=== PATIENT | female | born 1940 | race Caucasian/White ===

== ENCOUNTER 2023-07-14 13:53 | Emergency (ER) | payer MEDICARE, OTHER ==
[2023-07-14] MEDS ORDERED: Sodium Chloride 0.9% 10 ML Syringe FLUSH PRN (14:57)
[2023-07-14 15:14] LABS: HEMATOCRIT 53.2 % (37.0-47.0); MEAN CORPUSCULAR HGB CONC 33.8 g/dL (33.0-35.0); MEAN CORPUSCULAR VOLUME 88.7 fL (80-100); PLATELET COUNT,PLT 242 10^3/uL (150-450); WHITE BLOOD CELL COUNT,WBC 16.7 10^3/uL (5.0-10.0)
[2023-07-14 15:15] LABS: BASOPHILS PERCENT AUTO 0.2 % (0.0-1.0); EOSINOPHILS PERCENT AUTO 9.5 % (1.0-3.0); MONOCYTES PERCENT AUTO 8.6 % (2-8); NEUTROPHILS PERCENT AUTO 65.7 % (42.2-75.2)
[2023-07-14 15:33] LABS: ANION GAP 16.6 mEq/L (7-13); BILIRUBIN TOTAL 0.6 mg/dL (0.2-1.0); BUN/CREATININE RATIO 13.1 (No establ ref range); C-REACTIVE PROTEIN 1.11 ng/dL (<=0.30); CALCIUM 9.2 mg/dL (8.5-10.1); CREATININE 1.68 mg/dL (0.55-1.02); EST CRCL DRUG DOSING (CG) 23.06 mL/min; MAGNESIUM 1.6 mg/dL (1.8-2.4); POTASSIUM,K 3.6 mmol/L (3.5-5.1); PROTEIN TOTAL,TP 6.6 g/dL (6.4-8.2)
[2023-07-14 15:39] LABS: A/G RATIO 0.83
[2023-07-14 15:48] LABS: BAND PERCENT MAN 16 %; EOSINOPHILS PERCENT MAN 4 % (1-3); LYMPHOCYTES PERCENT MAN 24 % (20-50); MONOCYTES PERCENT MAN 9 % (2-8); SEG NEUTROPHILS PERCENT MAN 47 % (42-75)
[2023-07-14 15:49] LABS: ANISOCYTOSIS 1+ SLIGHT; ATYPICAL LYMPHOCYTES FEW; PLATELET COUNT ESTIMATE ADEQUATE; TARGET CELLS FEW
== END 2023-07-14 16:45 | disposition home or self-care (01) ==
LOC: DL.ED 13:53
DX: R53.1 Weakness (principal); J44.9 Chronic obstructive pulmonary disease, unspecified; Z79.82 Long term (current) use of aspirin; Z79.899 Other long term (current) drug therapy
CPT/HCPCS: 36415; 71250; 80053; 83605; 83735; 85025; 86140; 99284; 99285

== ENCOUNTER 2023-07-26 12:18 | Emergency (ER) | payer MEDICARE, OTHER ==
[2023-07-26 13:13] LABS: BASOPHILS PERCENT AUTO 0.2 % (0.0-1.0); HEMATOCRIT 45.5 % (37.0-47.0); HEMOGLOBIN 15.1 g/dL (12.0-16.0); LYMPHOCYTES PERCENT AUTO 6.7 % (20.5-50.1); MEAN CORPUSCULAR HEMOGLOBIN 29.5 pg (27.0-34.0); MEAN CORPUSCULAR HGB CONC 33.2 g/dL (33.0-35.0); MONOCYTES PERCENT AUTO 9.8 % (2-8); NEUTROPHILS PERCENT AUTO 78.3 % (42.2-75.2); PLATELET COUNT,PLT 195 10^3/uL (150-450); RED BLOOD CELL COUNT 5.11 10^6/uL (4.2-5.4); WHITE BLOOD CELL COUNT,WBC 6.3 10^3/uL (5.0-10.0)
[2023-07-26 13:24] LABS: ALBUMIN 2.9 g/dL (3.4-5.0); ANION GAP 15.6 mEq/L (7-13); BILIRUBIN TOTAL 0.8 mg/dL (0.2-1.0); BUN/CREATININE RATIO 14.2 (No establ ref range); CALCIUM 8.8 mg/dL (8.5-10.1); CREATININE 1.13 mg/dL (0.55-1.02); EST CRCL DRUG DOSING (CG) 34.29 mL/min; MAGNESIUM 1.6 mg/dL (1.8-2.4); POTASSIUM,K 3.6 mmol/L (3.5-5.1); PROTEIN TOTAL,TP 6.4 g/dL (6.4-8.2)
[2023-07-26 13:25] LABS: A/G RATIO 0.83
[2023-07-26 13:50] LABS: INFLUENZA A NAA NEGATIVE (NEGATIVE); INFLUENZA B NAA NEGATIVE (NEGATIVE)
[2023-07-26 13:52] LABS: CORONAVIRUS COVID-19 NAA POSITIVE (NEGATIVE)
== END 2023-07-26 14:15 | disposition home or self-care (01) ==
LOC: DL.ED 12:18
DX: U07.1 COVID-19 (principal); R53.1 Weakness; R11.10 Vomiting, unspecified; E78.00 Pure hypercholesterolemia, unspecified; I10 Essential (primary) hypertension; K21.9 Gastro-esophageal reflux disease without esophagitis; E66.9 Obesity, unspecified; Z68.31 Body mass index [BMI] 31.0-31.9, adult; Z87.891 Personal history of nicotine dependence
CPT/HCPCS: 0240U; 36415; 80053; 83690; 83735; 85025; 99284

== ENCOUNTER 2024-01-19 20:41 | Emergency (ER) | payer MEDICARE, OTHER ==
[2024-01-19] MEDS: Sodium Chloride 0.9% 10 ML Syringe FLUSH PRN (21:10)
[2024-01-19 21:16] LABS: BASOPHILS PERCENT AUTO 0.4 % (0.0-1.0); EOSINOPHILS PERCENT AUTO 0.4 % (1.0-3.0); HEMATOCRIT 45.1 % (37.0-47.0); HEMOGLOBIN 14.7 g/dL (12.0-16.0); LYMPHOCYTES PERCENT AUTO 23.1 % (20.5-50.1); MEAN CORPUSCULAR HEMOGLOBIN 30.4 pg (27.0-34.0); MEAN CORPUSCULAR HGB CONC 32.6 g/dL (33.0-35.0); MEAN CORPUSCULAR VOLUME 93.4 fL (80-100); MONOCYTES PERCENT AUTO 7.5 % (2-8); NEUTROPHILS PERCENT AUTO 68.6 % (42.2-75.2); PLATELET COUNT,PLT 215 10^3/uL (150-450); RED BLOOD CELL COUNT 4.83 10^6/uL (4.2-5.4); WHITE BLOOD CELL COUNT,WBC 4.8 10^3/uL (5.0-10.0)
[2024-01-19] MEDS: GI Cocktail Oral Solution 30 ML PO ONE (21:25)
[2024-01-19 21:38] LABS: ALBUMIN 3.6 g/dL (3.4-5.0); ANION GAP 14.2 mEq/L (7-13); BILIRUBIN TOTAL 0.4 mg/dL (0.2-1.0); BUN/CREATININE RATIO 24.3 (No establ ref range); CALCIUM 8.7 mg/dL (8.5-10.1); CREATININE 1.07 mg/dL (0.55-1.02); EST CRCL DRUG DOSING (CG) 35.61 mL/min; POTASSIUM,K 4.2 mmol/L (3.5-5.1); PROTEIN TOTAL,TP 7.3 g/dL (6.4-8.2)
== END 2024-01-19 22:15 | disposition home or self-care (01) ==
LOC: DL.ED 20:41
DX: K21.9 Gastro-esophageal reflux disease without esophagitis (principal); E78.00 Pure hypercholesterolemia, unspecified; I10 Essential (primary) hypertension; J44.9 Chronic obstructive pulmonary disease, unspecified; E66.9 Obesity, unspecified; Z79.82 Long term (current) use of aspirin; Z79.899 Other long term (current) drug therapy; Z86.19 Personal history of other infectious and parasitic diseases; Z68.33 Body mass index [BMI] 33.0-33.9, adult
CPT/HCPCS: 36415; 80053; 84484; 85025; 93005; 93010; 99284; A9270; J3490

== ENCOUNTER 2025-03-28 10:23 | Emergency (ER) | payer MEDICARE, OTHER ==
[2025-03-28] MEDS ORDERED: Sodium Chloride 0.9% 10 ML Syringe FLUSH PRN (10:34)
[2025-03-28 10:41] LABS: BASOPHILS PERCENT AUTO 0.1 % (0.0-1.0); HEMATOCRIT 45.6 % (37.0-47.0); LYMPHOCYTES PERCENT AUTO 22.2 % (20.5-50.1); MEAN CORPUSCULAR HEMOGLOBIN 31.1 pg (27.0-34.0); MEAN CORPUSCULAR HGB CONC 32.9 g/dL (33.0-35.0); MEAN CORPUSCULAR VOLUME 94.6 fL (80-100); MONOCYTES PERCENT AUTO 9.6 % (2-8); NEUTROPHILS PERCENT AUTO 67.1 % (42.2-75.2); PLATELET COUNT,PLT 172 10^3/uL (150-450); RED BLOOD CELL COUNT 4.82 10^6/uL (4.2-5.4); WHITE BLOOD CELL COUNT,WBC 7.3 10^3/uL (5.0-10.0)
[2025-03-28] MEDS: Aspirin 81 MG Tab.Chew PO ONE (10:52)
[2025-03-28 10:53] LABS: INR 0.9 (0.9-1.2); PROTHROMBIN TIME 9.8 SEC (9.0-12.0)
[2025-03-28 11:00] LABS: A/G RATIO 0.9; ALANINE AMINOTRANSFERASE,ALT 21 U/L (14-59); ALBUMIN 3.6 g/dL (3.4-5.0); ALKALINE PHOSPHATASE 86 U/L (46-116); ANION GAP 12.9 mEq/L (7-13); ASPARTATE AMNIOTRANSFERASE,AST 15 U/L (15-37); BILIRUBIN TOTAL 0.6 mg/dL (0.2-1.0); BLOOD UREA NITROGEN,BUN 23 mg/dL (7-18); BUN/CREATININE RATIO 21.3 (No establ ref range); CALCIUM 9.3 mg/dL (8.5-10.1); CARBON DIOXIDE,CO2 30 mmol/L (21-32); CHLORIDE,CL 101 mmol/L (98-107); CREATININE 1.08 mg/dL (0.55-1.02); GLUCOSE RANDOM 114 mg/dL (70-99); MAGNESIUM 2.2 mg/dL (1.8-2.4); POTASSIUM,K 3.9 mmol/L (3.5-5.1); PROTEIN TOTAL,TP 7.5 g/dL (6.4-8.2); SODIUM,NA 140 mmol/L (136-145)
[2025-03-28 11:02] LABS: C-REACTIVE PROTEIN < 0.50 ng/dL (<=0.50); ESTIMATED GFR 51 mL/min (>=60)
== END 2025-03-28 12:45 | disposition home or self-care (01) ==
LOC: DL.ED 10:23
DX: R07.2 Precordial pain (principal); I10 Essential (primary) hypertension; E78.00 Pure hypercholesterolemia, unspecified; J44.9 Chronic obstructive pulmonary disease, unspecified; Z79.82 Long term (current) use of aspirin; Z79.899 Other long term (current) drug therapy
CPT/HCPCS: 36415; 80053; 83735; 84484; 85025; 85379; 85610; 86140; 93005; 93010; 99284; 99285; A9270

== ENCOUNTER 2025-05-26 16:15 | Emergency (ER) | payer MEDICARE, OTHER ==
[2025-05-26 16:50] LABS: PLATELET COUNT,PLT 170 10^3/uL (150-450); RED BLOOD CELL COUNT 5.01 10^6/uL (4.2-5.4); WHITE BLOOD CELL COUNT,WBC 15.5 10^3/uL (5.0-10.0)
[2025-05-26 16:51] LABS: BASOPHILS PERCENT AUTO 0.4 % (0.0-1.0); EOSINOPHILS PERCENT AUTO 5.1 % (1.0-3.0); LYMPHOCYTES PERCENT AUTO 11.6 % (20.5-50.1); MONOCYTES PERCENT AUTO 9.8 % (2-8); NEUTROPHILS PERCENT AUTO 73.1 % (42.2-75.2)
[2025-05-26 17:10] LABS: A/G RATIO 0.9; ALANINE AMINOTRANSFERASE,ALT 16.0 U/L (14-59); ASPARTATE AMNIOTRANSFERASE,AST 15.0 U/L (15-37); BILIRUBIN TOTAL 0.6 mg/dL (0.2-1.0); BLOOD UREA NITROGEN,BUN 23.0 mg/dL (7-18); CARBON DIOXIDE,CO2 24.0 mmol/L (21-32); CHLORIDE,CL 100.0 mmol/L (98-107); CREATININE 1.1 mg/dL (0.55-1.02); EST CRCL DRUG DOSING (CG) 35.48 mL/min; GLUCOSE RANDOM 105.0 mg/dL (70-99); POTASSIUM,K 3.8 mmol/L (3.5-5.1); PROTEIN TOTAL,TP 7.0 g/dL (6.4-8.2); SODIUM,NA 134.0 mmol/L (136-145)
[2025-05-26 17:37] LABS: ESTIMATED GFR 50.0 mL/min (>=60)
[2025-05-26 17:41] LABS: SEG NEUTROPHILS PERCENT MAN 74 % (42-75)
[2025-05-26 17:42] LABS: BAND PERCENT MAN 4 %; EOSINOPHILS PERCENT MAN 3 % (1-3); LYMPHOCYTES % ATYPICAL MANUAL 2 %; LYMPHOCYTES PERCENT MAN 12 % (20-50); MONOCYTES PERCENT MAN 5 % (2-8)
[2025-05-26] MEDS: Iopamidol 755 Mg/ML 100 ML Bottle IVPUSH ONE (18:06)
== END 2025-05-26 19:30 | disposition home or self-care (01) ==
LOC: DL.ED 16:15
DX: J41.0 Simple chronic bronchitis (principal); I10 Essential (primary) hypertension; E78.00 Pure hypercholesterolemia, unspecified; K21.9 Gastro-esophageal reflux disease without esophagitis; Z79.82 Long term (current) use of aspirin; Z79.899 Other long term (current) drug therapy
CPT/HCPCS: 36415; 71275; 80053; 83735; 83880; 84484; 85025; 85379; 99283; 99285; A9270; Q9967

== ENCOUNTER 2025-06-30 05:25 | Day surgery (SDC) | payer MEDICARE, OTHER ==
[2025-06-30] MEDS ORDERED: Propofol 200 MG/20 ML SDV IV ONE (05:26)
[2025-06-30] MEDS ORDERED: Lactated Ringers 1,000 ML IV ONE (05:26)
[2025-06-30] MEDS ORDERED: Propofol 200 MG/20 ML SDV ONE (05:44)
[2025-06-30] MEDS: Lactated Ringers 1,000 ML IV SCH (06:30)
== END 2025-06-30 08:58 | disposition home or self-care (01) ==
LOC: DL.ENDO 05:25
PROVIDERS: ATTEND Internal Medicine Gastroenterology
DX: K59.09 Other constipation (principal); K64.4 Residual hemorrhoidal skin tags; K62.1 Rectal polyp; K57.30 Diverticulosis of large intestine without perforation or abscess without bleeding; I10 Essential (primary) hypertension; E66.01 Morbid (severe) obesity due to excess calories; Z68.34 Body mass index [BMI] 34.0-34.9, adult; Z87.891 Personal history of nicotine dependence
CPT/HCPCS: 45378; J2704; J7120